=== PATIENT | female | born 1995 | race Caucasian/White ===

== ENCOUNTER 2023-04-23 21:00 | Emergency (ER) | payer MEDICAID, SELFPAY ==
[2023-04-23 21:18] VITALS: BP 121/56; PULSE 78; RESP 20; TEMP 36.8; O2SAT 95; BMI 17.1
--- NOTE | 2023-04-23 21:21 | ED.FEMALEGU1 ---
HPI - Female Genitourinary General Chief complaint: Urogenital-Female Stated complaint: UTI COMPLAINT Time Seen by Provider: 04/23/23 21:21 Discharge Plan Discharge Chief Complaint: Urogenital-Female Referrals: Kvng Arias MD [Primary Care Provider] - 1 week
[2023-04-23 21:31] LABS: Bilirubin Urine NEGATIVE (NEGATIVE); Blood Urine LARGE (NEGATIVE); Clarity Urine CLOUDY (CLEAR); Color Urine LT. YELLOW (YELLOW); Glucose Urine UA NEGATIVE (NEGATIVE); Ketones Urine NEGATIVE (NEGATIVE); Leukocyte Esterase Urine MODERATE (NEGATIVE); Nitrite Urine POSITIVE (NEGATIVE); Protein Urine >=300 mg/dL (NEG/TRACE); Specific Gravity Urine >=1.030 (1.005-1.025); Urobilinogen Urine 0.2 EU/dL (0.2-1.0); pH Urine 5.5 (5.0-9.0)
[2023-04-23 21:32] LABS: Urine Microscopic Indicated YES
[2023-04-23 21:34] LABS: HCG Qualitative Urine* NEGATIVE (NEGATIVE)
[2023-04-23 21:37] LABS: Bacteria Urine MODERATE #/HPF (NONE SEEN); Cast Seen? NONE SEEN #/LPF (NONE SEEN); Crystals Seen? None Seen #/HPF (None Seen); Mucus Urine NONE SEEN (NONE SEEN); Squamous Epithelial Cell Urine FEW #/LPF (NONE/RARE); Urine Culture Indicated YES; WBC Urine >100 #/HPF (NONE SEEN)
--- NOTE | 2023-04-23 21:45 | ED_ITS ---
Documented by User: RONA Tobias 04/23/23 21:51 HPI - Female Genitourinary General Chief complaint: Urogenital-Female Stated complaint: UTI COMPLAINT Time Seen by Provider: 04/23/23 21:21 Source: patient Mode of arrival: walk-in Limitations: no limitations History of Present Illness HPI Narrative: patient is a 27-year-old female presents to the emergency department for a one-day history of burning with urination and some pain to the right low back. She denies fevers, chills, vomiting. She states she had a urinary tract infection about one year ago similarly. She has no history of kidney stones. She has not noted any blood in her urine. She has had a previous hysterectomy, no concern for . No medications taken prior to arrival. Related Data Previous Rx's Medication Instructions Recorded ciprofloxacin HCl 500 mg tablet 500 mg PO BID #14 tabs 04/23/23 (Cipro) ketorolac 10 mg tablet 10 mg PO TID PRN pain #10 tabs 04/23/23 ondansetron 4 mg disintegrating 4 mg PO Q6H PRN nausea and 04/23/23 tablet vomiting #12 tabs phenazopyridine 200 mg tablet 200 mg PO Q8H 2 days #6 tabs 04/23/23 (Pyridium) Allergies Allergy/AdvReac Type Severity Reaction Status Date / Time No Known Drug Allergies Allergy Verified 04/23/23 21:21 Review of Systems ROS Constitutional Denies: fever or chills Ears, nose, mouth, and throat Denies: throat pain Cardiovascular Denies: chest pain Respiratory Denies: shortness of breath or cough Gastrointestinal Denies: abdominal pain, nausea or vomiting Genitourinary Reports: painful urination Musculoskeletal Reports: back pain Integumentary/Breast Denies: rash Neurological Denies: headache Exam Narrative Exam Narrative: Gen.: Awake, alert, in no distress Head: Normocephalic, atraumatic ENT: Moist mucous membranes Respiratory: No respiratory distress, lungs clear bilaterally Cardio: Regular rate and rhythm Gastrointestinal: Abdomen is soft, nondistended and nontender to palpation Back: no CVA tenderness Extremities: Moves extremities equally Psych: Normal mood and affect Neuro: No focal neuro deficit Skin: Warm, dry, intact Constitutional Vital Signs, click to edit/add: Last Vital Signs Temp 98.2 F 04/23/23 21:18 Pulse 78 04/23/23 21:18 Resp 20 04/23/23 21:18 BP 121/56 04/23/23 21:18 Pulse Ox 95 04/23/23 21:18 Course Vital Signs Vital signs: Vital Signs Temperature 98.2 F 04/23/23 21:18 Pulse Rate 78 04/23/23 21:18 Respiratory Rate 20 04/23/23 21:18 Blood Pressure 121/56 04/23/23 21:18 Pulse Oximetry 95 04/23/23 21:18 Temperature 98.2 F 04/23/23 21:18 Pulse Rate 78 04/23/23 21:18 Respiratory Rate 20 04/23/23 21:18 Blood Pressure 121/56 04/23/23 21:18 Pulse Oximetry 95 04/23/23 21:18 MDM - Female Genitourinary MDM Narrative Medical decision making narrative: patient with a nitrite positive urinary tract infection. she has had urinary tract infection in the past with low back pain as well. Her vital signs are stable, she has no CVA tenderness. She'll be treated for urinary tract infection with Cipro, Pyridium, Zofran, Toradol. Work note provided. Follow-up with PCP and return to the emergency department if symptoms change or worsen Medical Records Attestation: I reviewed the patient's medical records. Lab Data Attestation: I reviewed the patient's lab results. Labs: Lab Results 04/23/23 Range/Units 21:20 Urine Color Lt. yellow (YELLOW) Urine Clarity Cloudy A (CLEAR) Urine pH 5.5 (5.0-9.0) Ur Specific [place] >=1.030 A (1.005-1.025) Urine Protein >=300 A (NEG/TRACE) mg/dL Urine Glucose (UA) Negative (NEGATIVE) mg/dL Urine Ketones Negative (NEGATIVE) mg/dL Urine Occult Blood Large A (NEGATIVE) Urine Nitrite Positive A (NEGATIVE) Urine Bilirubin Negative (NEGATIVE) Urine Urobilinogen 0.2 (0.2-1.0) EU/dL Ur Leukocyte Esterase Moderate A (NEGATIVE) Urine RBC 5-10 A (0-2) #/HPF Urine WBC >100 A (NONE SEEN) #/HPF Ur Squamous Epith Cells Few A (NONE/RARE) #/LPF Urine Crystals None seen (None Seen) #/HPF Urine Bacteria Moderate A (NONE SEEN) #/HPF Urine Casts None seen (NONE SEEN) #/LPF Urine Mucus None seen (NONE SEEN) Ur Culture Indicated? Yes Urine HCG, Qual Negative (NEGATIVE) Discharge Plan Discharge Chief Complaint: Urogenital-Female Clinical Impression: Urinary tract infection Patient Disposition: Home, Self-Care Time of Disposition Decision: 21:46 Condition: Good Mode of Transportation: Private Vehicle Prescriptions / Home Meds: New phenazopyridine [Pyridium] 200 mg tablet 200 mg PO Q8H 2 Days Qty: 6 0RF ciprofloxacin HCl [Cipro] 500 mg tablet 500 mg PO BID Qty: 14 0RF ketorolac 10 mg tablet 10 mg PO TID PRN (Reason: pain) Qty: 10 0RF ondansetron 4 mg tablet,disintegrating 4 mg PO Q6H PRN (Reason: nausea and vomiting) Qty: 12 0RF Instructions: Urinary Tract Infection in Women (ED) Stand Alone Forms: Portal Instructions Referrals: Kvng Arias MD [Primary Care Provider] - 1 week Discharge Date/Time: 04/23/23 22:06 Documented by User: Shala Cramer MD 04/24/23 01:21 HPI - Female Genitourinary General Chief complaint: Urogenital-Female Stated complaint: UTI COMPLAINT Time Seen by Provider: 04/23/23 21:21 Related Data Previous Rx's Medication Instructions Recorded ciprofloxacin HCl 500 mg tablet 500 mg PO BID #14 tabs 04/23/23 (Cipro) ketorolac 10 mg tablet 10 mg PO TID PRN pain #10 tabs 04/23/23 ondansetron 4 mg disintegrating 4 mg PO Q6H PRN nausea and 04/23/23 tablet vomiting #12 tabs phenazopyridine 200 mg tablet 200 mg PO Q8H 2 days #6 tabs 04/23/23 (Pyridium) Allergies Allergy/AdvReac Type Severity Reaction Status Date / Time No Known Drug Allergies Allergy Verified 04/23/23 21:21 Exam Constitutional Vital Signs, click to edit/add: Last Vital Signs Temp 98.2 F 04/23/23 21:18 Pulse 78 04/23/23 21:18 Resp 20 04/23/23 21:18 BP 121/56 04/23/23 21:18 Pulse Ox 95 04/23/23 21:18 Course Vital Signs Vital signs: Vital Signs Temperature 98.2 F 04/23/23 21:18 Pulse Rate 78 04/23/23 21:18 Respiratory Rate 20 04/23/23 21:18 Blood Pressure 121/56 04/23/23 21:18 Pulse Oximetry 95 04/23/23 21:18 Temperature 98.2 F 04/23/23 21:18 Pulse Rate 78 04/23/23 21:18 Respiratory Rate 20 04/23/23 21:18 Blood Pressure 121/56 04/23/23 21:18 Pulse Oximetry 95 04/23/23 21:18 MDM - Female Genitourinary MDM Narrative Medical decision making narrative: patient with a nitrite positive urinary tract infection. she has had urinary tract infection in the past with low back pain as well. Her vital signs are stable, she has no CVA tenderness. She'll be treated for urinary tract infection with Cipro, Pyridium, Zofran, Toradol. Work note provided. Follow-up with PCP and return to the emergency department if symptoms change or worsen Attending physician attestation I have reviewed the mid-level documentation, agree with the documentation, medical decision making and treatment plan as outlined by the mid-level provider. Lab Data Labs: Lab Results 04/23/23 Range/Units 21:20 Urine Color Lt. yellow (YELLOW) Urine Clarity Cloudy A (CLEAR) Urine pH 5.5 (5.0-9.0) Ur Specific [place] >=1.030 A (1.005-1.025) Urine Protein >=300 A (NEG/TRACE) mg/dL Urine Glucose (UA) Negative (NEGATIVE) mg/dL Urine Ketones Negative (NEGATIVE) mg/dL Urine Occult Blood Large A (NEGATIVE) Urine Nitrite Positive A (NEGATIVE) Urine Bilirubin Negative (NEGATIVE) Urine Urobilinogen 0.2 (0.2-1.0) EU/dL Ur Leukocyte Esterase Moderate A (NEGATIVE) Urine RBC 5-10 A (0-2) #/HPF Urine WBC >100 A (NONE SEEN) #/HPF Ur Squamous Epith Cells Few A (NONE/RARE) #/LPF Urine Crystals None seen (None Seen) #/HPF Urine Bacteria Moderate A (NONE SEEN) #/HPF Urine Casts None seen (NONE SEEN) #/LPF Urine Mucus None seen (NONE SEEN) Ur Culture Indicated? Yes Urine HCG, Qual Negative (NEGATIVE) Discharge Plan Discharge Chief Complaint: Urogenital-Female Clinical Impression: Urinary tract infection Patient Disposition: Home, Self-Care Time of Disposition Decision: 21:46 Condition: Good Mode of Transportation: Private Vehicle Prescriptions / Home Meds: New phenazopyridine [Pyridium] 200 mg tablet 200 mg PO Q8H 2 Days Qty: 6 0RF ciprofloxacin HCl [Cipro] 500 mg tablet 500 mg PO BID Qty: 14 0RF ketorolac 10 mg tablet 10 mg PO TID PRN (Reason: pain) Qty: 10 0RF ondansetron 4 mg tablet,disintegrating 4 mg PO Q6H PRN (Reason: nausea and vomiting) Qty: 12 0RF Instructions: Urinary Tract Infection in Women (ED) Stand Alone Forms: Portal Instructions Referrals: Kvng Arias MD [Primary Care Provider] - 1 week Discharge Date/Time: 04/23/23 22:06
[2023-04-23] MEDS: CIPROFLOXACIN HCL 500 MG TABLET PO (22:04)
[2023-04-23] MEDS: ONDANSETRON 4 MG RAPDIS TABLET SL (22:04)
[2023-04-23] MEDS: KETOROLAC TROMETHAMINE 10 MG TABLET PO (22:04)
== END 2023-04-23 22:06 | disposition home or self-care (01) ==
PROVIDERS: Physician Assistant; Emergency Provider Emergency Medicine; PCP Family Medicine
DX: N39.0 Urinary tract infection, site not specified (principal); Z87.440 Personal history of urinary (tract) infections
CPT/HCPCS: 81001; 81003; 84703; 87086; 87150; 87186; 99283

== ENCOUNTER 2023-06-07 20:50 | Outpatient (REF) | payer MEDICAID, SELFPAY ==
[2023-06-12 12:09] LABS: Age Gdln ACOG Testing Note (.); IGP, rfx Aptima HPV ASCU Note (.)
== END 2023-06-07 20:51 | disposition home or self-care (01) ==
LOC: LAB 20:50
PROVIDERS: PCP Family Medicine; Visit Provider Physician Assistant
DX: Z12.4 Encounter for screening for malignant neoplasm of cervix (principal)
CPT/HCPCS: G0145

== ENCOUNTER 2024-11-26 15:27 | Outpatient (REF) | payer MEDICAID, SELFPAY ==
[2024-11-30 12:07] LABS: Age Gdln ACOG Testing Note (.); HPV Aptima Negative (Negative); IGP, Aptima HPV, rfx 16/18,45 Note (.)
== END 2024-11-26 15:28 | disposition home or self-care (01) ==
LOC: LAB 15:27
PROVIDERS: PCP Family Medicine; Visit Provider Obstetrics & Gynecology
DX: Z01.419 Encounter for gynecological examination (general) (routine) without abnormal findings (principal)
CPT/HCPCS: 87624; 88175

== ENCOUNTER 2024-12-05 12:33 | Outpatient (OUT) | payer MEDICAID, SELFPAY ==
--- OUTSIDE RECORDS SUMMARY | 2024-12-05 12:50 | XMS_ITS | CCD ---
Author Organization [facility] Care Team Providers Care Textile Engineer Name Role Phone DR KVNG PEPE A Primary Care Unavailable MARKER, DR LOONEY Admitting Unavailable MARKER, DR LOONEY Attending Unavailable MARKER, DR LOONEY Consulting Unavailable LAVELL, DR ELLINGTON Admitting Unavailable LAVELL, DR ELLINGTON Attending Unavailable LAVELL, DR ELLINGTON Consulting Unavailable Marie Gilman DDS Attending Unavailable Kvng Pepe MD Primary Care Provider RAKEL MONTE Attending Unavailable MARCE CISNEROS Attending Unavailable RACHEAL GOMES Referring Unavailable RAKEL MONTE Attending Unavailable Lilliana, Physician Primary Care Provider UnavailDENISE Hansen Attending Unavailable LILLIANA, PHYSICIAN Primary Care Unavailable Allergies Allergy Classification Reported Allergen(s) Allergy Type Date of Onset Reaction(s) Facility (1 source) [facility] Drug allergy (disorder) [facility] Medications Current Medications Medication Drug Class(es) Dates Sig (Normalized) Sig (Original) amoxicillin 500 mg oral capsule (4 sources) Penicillin-class Antibacterial Start: 11-17-2024 take 1 capsule by mouth in the morning, then take 1 capsule by mouth in the evening, then take 1 capsule by mouth at bedtime amoxicillin (Amoxil) 500 MG capsule Take 500 mg by mouth in the morning and 500 mg in the evening and 500 mg before bedtime. 11/17/2024 Active citalopram 20 mg oral tablet (8 sources) Serotonin Reuptake Inhibitor Start: 2024 take 1 tablet by mouth once daily citalopram (CELEXA) 20 MG tablet Take 1 (one) tablet (20 mg total) by mouth daily . 2024 Active hydrOXYzine hydrochloride 10 mg oral tablet (9 sources) Antihistamine Start: 04-12-2023 take 1 tablet by mouth every eight hours as needed hydrOXYzine (ATARAX) 10 MG tablet Take 1 (one) tablet (10 mg total) by mouth every 8 (eight) hours as needed . 04/12/2023 Active ondansetron 4 mg oral tablet (8 sources) Serotonin-3 Receptor Antagonist Start: 09-03-2024 ondansetron (ZOFRAN) 4 MG tablet 09/03/2024 Active sulfamethoxazole 800 mg / trimethoprim 160 mg oral tablet (2 sources) Dihydrofolate Reductase Inhibitor Antibacterial, Sulfonamide Antimicrobial Start: 11-04-2024 End: 11-11-2024 take 1 tablet by mouth once in the morning, then take 1 tablet by mouth once at bedtime sulfamethoxazole -trimethoprim (Bactrim DS) 800-160 MG per tablet Indications: Urinary tract infection with hematuria, site unspecified Take 1 tablet by mouth in the morning and 1 tablet before bedtime. Do all this for 7 days. 14 tablet 11/04/2024 11/11/2024 Active Problems Active Problems Problem Classification Problem Date Documented Da te Episodic/Chronic Abdominal pain (3 sources) Pain in female pelvis; Translations: [Pelvic and perineal pain] 11-04-2024 Episodic Other skin disorders (4 sources) Epidermoid cyst; Translations: [Epidermal cyst] 11-24-2024 Episodic Other skin disorders (2 sources) Trichilemmal cyst; Translations: [Pilar cyst] Onset: 12-01-2024 12-01-2024 Episodic Other skin disorders (1 source) Pilar cyst; Translations: [Pilar cyst] Onset: 12-01-2024 Episodic Residual codes; unclassified (2 sources) Pain; Translations: [Pain, unspecified] 11-24-2024 Episodic Urinary tract infections (2 sources) Urinary tract infectious disease; Translations: [Urinary tract infection, site not specified] 11-04-2024 Episodic Past or Other Problems Problem Classification Problem Date Documented Da te Episodic/Chronic Other screening for suspected conditions (not mental disorders or infectious disease) (4 sources) Encounter for screening for malignant neoplasm of cervix; Translations: [ENC SCREENING MALIG NEOPLASM CERV] Onset: 10-19-2021 Episodic Results Test Name Value Interpretation Reference Range Facility Urinalysis macro (dipstick) panel (U)on 11-04-2024 Bilirubin, UA Negative Negative - 4(70) +++ mg/dL [facility] Blood, UA Positive Negative - 50 Shaggy/mcL [facility] Clarity, UA Clear [facility] Color, UA Yellow [facility] Glucose, UA Negative Negative - 1999(110) ++++ mg/dL [facility] Interpretation and review of laboratory results Abnormal [facility] Ketones, UA Positive Negative - 160(16) ++++ mg/dL [facility] Leukocytes, UA Trace Negative - 500+++ Carrie/mcL [facility] Nitrite, UA Positive Negative - Positive [facility] pH, UA 6 5 - 9 [facility] Protein, UA Negative Negative - 1999(20) ++++ mg/dL [facility] Spec Grav, UA 1.025 1 - 1.03 [facility] Urobilinogen, UA 1.0 0.2 - 12 mg/dL [facility] CBC AUTO DIFFon 07-05-2022 BASO # 0.1 103/ul Normal 0.0-0.1 [facility] Comment on above: Performed By: #### C BC #### [facility] [address] [place] [address] Dr. Maegan Rubio Basophils/100 WBC (Bld) 0.5 % Normal 0.2-2.0 [facility] Comment on above: Performed By: #### C BC #### [facility] [address] [place] [address] Dr. Maegan Rubio EO # 0.2 103/ul Normal 0.0-0.7 [facility] Comment on above: Performed By: #### C BC #### [facility] [address] [place] [address] Dr. Maegan Rubio Eosinophils/100 WBC (Bld) 1.8 % Normal 0.9-7.0 [facility] Comment on above: Performed By: #### C BC #### [facility] [address] [place] [address] Dr. Maegan Rubio Erythrocyte distribution width (RBC) [Ratio] 12.0 % Normal 11.0-15.0 [facility] Comment on above: Performed By: #### C BC #### [facility] [address] [place] [address] Dr. Maegan Rubio Hematocrit (Bld) [Volume fraction] 37.4 % Normal 36.0-48.0 [facility] Comment on above: Performed By: #### C BC #### [facility] [address] [place] [address] Dr. Maegan Rubio Hemoglobin (Bld) [Mass/Vol] 12.3 g/dL Normal 12.0-16.0 [facility] Comment on above: Performed By: #### C BC #### [facility] [address] [place] [address] Dr. Maegan Rubio IG # 0.02 10e3/ul Normal 0.00-0.03 [facility] Comment on above: Performed By: #### C BC #### [facility] [address] [place] [address] Dr. Maegan Rubio IG % 0.2 % Normal 0.0-0.5 [facility] Comment on above: Performed By: #### C BC #### [facility] [address] [place] [address] Dr. Maegan Rubio LYMPH # 4.2 103/ul Critically high 1.2-3.8 [facility] Comment on above: Performed By: #### C BC #### [facility] [address] [place] [address] Dr. Maegan Rubio Lymphocytes/100 WBC (Bld) 39.0 % Normal 20.5-60.0 [facility] Comment on above: Performed By: #### C BC #### [facility] [address] [place] [address] Dr. Maegan Rubio MANUAL DIFF REQ NO Normal [facility] Comment on above: Performed By: #### C BC #### [facility] [address] [place] [address] Dr. Maegan Rubio MCH (RBC) [Entitic mass] 30.1 pg Normal 26.7-34.0 [facility] Comment on above: Performed By: #### C BC #### [facility] [address] [place] [address] Dr. Maegan Rubio MCHC (RBC) [Mass/Vol] 32.9 g/dL Normal 29.9-35.2 [facility] Comment on above: Performed By: #### C BC #### [facility] [address] [place] [address] Dr. Maegan Rubio MCV (RBC) [Entitic vol] 91.4 fL Normal 81.0-99.0 [facility] Comment on above: Performed By: #### C BC #### [facility] [address] [place] [address] Dr. Maegan Rubio MONO # 0.9 103/ul Critically high 0.3-0.8 [facility] Comment on above: Performed By: #### C BC #### [facility] [address] [place] [address] Dr. Maegan Rubio Monocytes/100 WBC (Bld) 8.4 % Normal 1.7-12.0 [facility] Comment on above: Performed By: #### C BC #### [facility] [address] [place] [address] Dr. Maegan Rubio NEUT # 5.4 103/ul Normal 1.4-6.5 [facility] Comment on above: Performed By: #### C BC #### [facility] [address] [place] [address] Dr. Maegan Rubio Neutrophils/100 WBC (Bld) 50.1 % Normal 43.0-75.0 [facility] Comment on above: Performed By: #### C BC #### [facility] [address] [place] [address] Dr. Maegan Rubio Platelet mean volume (Bld) [Entitic vol] 10.0 fL Normal 9.5-13.5 [facility] Comment on above: Performed By: #### C BC #### [facility] [address] [place] [address] Dr. Maegan Rubio PLT 347 103/ul Normal 150-450 [facility] Comment on above: Performed By: #### C BC #### [facility] [address] [place] [address] Dr. Maegan Rubio RBC 4.09 106/ul Critically low 4.20-5.40 [facility] Comment on above: Performed By: #### C BC #### [facility] [address] [address] [address] Maegan Rubio WBC 10.8 103/ul Normal 4.0-11.0 [facility] Comment on above: Performed By: #### C BC #### [facility] [address] [place] [address] Dr. Maegan Rubio ER URINE PROFILEon 2 Bilirubin Ql (U) Negative Normal NEGATIVE [facility] Comment on above: Performed By: #### Erik PRICE UMICRO #### [facility] [address] [place] [address] Dr. Maegan Rubio Clarity (U) CLEAR Normal CLEAR [facility] Comment on above: Performed By: #### Erik PRICE UMICRO #### [facility] [address] [place] [address] Dr. Maegan Rubio Color (U) LT. YELLOW Normal YELLOW [facility] Comment on above: Performed By: #### Erik PRICE UMICRO #### [facility] [address] [place] [address] Dr. Maegan Rubio ERUKory A micrscopic examination will be performed if indicated. Normal [facility] Comment on above: Performed By: #### Erik PRICE UMICRO #### [facility] [address] [place] [address] Dr. Maegan Rubio Glucose Ql (U) Negative Normal NEGATIVE [facility] Comment on above: Performed By: #### Erik PRICE UMICRO #### [facility] [address] [place] [address] Dr. Maegan Rubio Hemoglobin Ql (U) MODERATE Abnormal NEGATIVE [facility] [place] Comment on above: Performed By: #### Erik PRICE UMICRO #### [facility] [address] [place] [address] Dr. Maegan Rubio Ketones Ql (U) Negative Normal NEGATIVE [facility] Comment on above: Performed By: #### Erik PRICE UMICRO #### [facility] [address] [place] [address] Dr. Maegan Rubio LEUKOCYTES MODERATE Abnormal NEGATIVE [facility] Comment on above: Performed By: #### RATNA CUMMINGSRO #### [facility] [address] [place] [address] Dr. Maegan Rubio Nitrite Ql (U) Negative Normal NEGATIVE [facility] Comment on above: Performed By: #### RATNA CUMMINGSRO #### [facility] [address] [place] [address] Dr. Maegan Rubio pH (U) 6.0 [pH] Normal 5-9 [facility] Comment on above: Performed By: #### KENROY CUMMINGS #### [facility] [address] [place] [address] Dr. Maegan Rubio Protein (U) [Mass/Vol] 30 mg/dL Abnormal NEGATIVE/ TRACE [facility] Comment on above: Performed By: #### RATNA CUMMINGSRO #### [facility] [address] [place] [address] Dr. Maegan Rubio SPEC GRAVITY 1.025 Normal 1.005-<=1.025 [facility] Comment on above: Performed By: #### KENROY CUMMINGS #### [facility] [address] [place] [address] Dr. Maegan Rubio UR MICRO IND INDICATED Normal [facility] Comment on above: Performed By: #### KENROY CUMMINGS #### [facility] [address] [place] [address] Dr. Maegan Rubio Urobilinogen Qn (U) 0.2 {Zeenat'U}/dL Normal 0.2 - 1. 0 [facility] Comment on above: Performed By: #### RATNA CUMMINGSRO #### [facility] [address] [place] [address] Dr. Maegan Rubio PROF 14(COMP METB)on 022 Albumin [Mass/Vol] 3.9 g/dL Normal 3.4-5.0 [facility] Comment on above: Performed By: #### C MP #### [facility] [address] [place] [address] Dr. Maegan Rubio Albumin/Globulin [Mass ratio] 1.1 {ratio} Normal [facility] Comment on above: Performed By: #### C MP #### [facility] [address] [place] [address] Dr. Maegan Rubio ALP [Catalytic activity/Vol] 83 U/L Normal 46-116 [facility] Comment on above: Performed By: #### C MP #### [facility] [address] [place] [address] Dr. Maegan Rubio ALT [Catalytic activity/Vol] 17 U/L Normal 14-59 [facility] Comment on above: Performed By: #### C MP #### [facility] [address] [place] [address] Dr. Maegan Rubio Anion gap [Moles/Vol] 12.8 mmol/L Normal [facility] Comment on above: Performed By: #### C MP #### [facility] [address] [place] [address] Dr. Maegan Rubio AST [Catalytic activity/Vol] 14 U/L Critically low 15-37 [facility] Comment on above: Performed By: #### C MP #### [facility] [address] [place] [address] Dr. Maegan Rubio Bilirubin [Mass/Vol] 0.2 mg/dL Normal 0.2-1.0 [facility] Comment on above: Performed By: #### C MP #### [facility] [address] [place] [address] Dr. Maegan Rubio Calcium [Mass/Vol] 9.2 mg/dL Normal 8.5-10.1 [facility] Comment on above: Performed By: #### C MP #### [facility] [address] [place] [address] Dr. Maegan Rubio Chloride [Moles/Vol] 103 mmol/L Normal 98-107 [facility] Comment on above: Performed By: #### C MP #### [facility] [address] [place] [address] Dr. Maegan Rubio CO2 [Moles/Vol] 28.4 mmol/L Normal 21.0-32.0 [facility] Comment on above: Performed By: #### C MP #### [facility] [address] [address] [address] Maegan Rubio Creatinine [Mass/Vol] 0.74 mg/dL Normal 0.55-1.02 [facility] Comment on above: Performed By: #### C MP #### [facility] [address] [address] [address] Maegan Rubio EGFR-AF TUNISIAN >60 Normal >=60 [facility] Comment on above: Performed By: #### C MP #### [facility] [address] [address] [address] Maegan Rubio EGFR-NON AF TUNISIAN >60 Normal >=60 [facility] Comment on above: Performed By: #### C MP #### [facility] [address] [address] [address] Maegan Rubio Globulin (S) [Mass/Vol] 3.6 g/dL Normal [facility] Comment on above: Performed By: #### C MP #### [facility] [address] [address] [address] Maegan Rubio Glucose [Mass/Vol] 81 mg/dL Normal 74-106 [facility] Comment on above: Performed By: #### C MP #### [facility] [address] [address] [address] Maegan Rubio Potassium [Moles/Vol] 3.2 mmol/L Critically low 3.5-5.1 [facility] Comment on above: Performed By: #### C MP #### [facility] [address] [address] [address] Maegan Rubio Protein [Mass/Vol] 7.5 g/dL Normal 6.4-8.2 [facility] Comment on above: Performed By: #### C MP #### [facility] [address] [address] [address] Maegan Rubio Sodium [Moles/Vol] 141 mmol/L Normal 136-145 [facility] Comment on above: Performed By: #### C MP #### [facility] [address] [place] [address] Dr. Maegan Rubio Urea nitrogen [Mass/Vol] 12.0 mg/dL Normal 7.0-18.0 [facility] Comment on above: Performed By: #### C MP #### [facility] [address] [place] [address] Dr. Maegan Rubio Urea nitrogen/Creatinine [Mass ratio] 16.2 mg/mg Normal [facility] Comment on above: Performed By: #### C MP #### [facility] [address] [place] [address] Dr. Maegan Rubio URINE MICROSCOPIC ONLYon BACTERIA SMALL Abnormal NONE SEEN [facility] Comment on above: Performed By: #### Erik PRICE UMICRO #### [facility] [address] [place] [address] Dr. Maegan Rubio Bacteria identified Cx Nom (U) INDICATED Normal [facility] Comment on above: Performed By: #### Erik PRICE UMICRO #### [facility] [address] [place] [address] Dr. Maegan Rubio CAST NONE SEEN Normal NONE SEEN [facility] Comment on above: Performed By: #### Erik PRICE UMICRO #### [facility] [address] [place] [address] Dr. Maegan Rubio Crystals LM Nom (Urine sed) NONE SEEN Normal NONE SEEN [facility] Comment on above: Performed By: #### Erik PRICE UMICRO #### [facility] [address] [place] [address] Dr. Maegan Rubio Epithelial cells LM Ql (Urine sed) NONE SEEN Normal NONE SEEN /RARE [facility] Comment on above: Performed By: #### Erik PRICE UMICRO #### [facility] [address] [place] [address] Dr. Maegan Rubio MUCOUS NONE SEEN Normal NONE SEEN [facility] Comment on above: Performed By: #### Erik PRICE UMICRO #### [facility] [address] [place] [address] Dr. Maegan Rubio RBC 5-10 Abnormal 0-2 [facility] Comment on above: Performed By: #### KENROY CUMMINGS #### [facility] [address] [place] [address] Dr. Maegan Rubio WBC 20-50 Abnormal NONE SEEN [facility] Comment on above: Performed By: #### KENROY CUMMINGS #### [facility] [address] [place] [address] Dr. Maegan Rubio PAP ACOG PANEL 2: 21 to 29on 10-24-2021 . . Normal [facility] Comment on above: Performed By: #### [id number] #### [facility] [address] [place] [address] Dr. Maegan Rubio Age Gdln ACOG Testing - [facility] Comment on above: Performed By: #### [id number] #### [facility] [address] [place] [address] Dr. Maegan Rubio DIAGNOSIS: Comment Normal [facility] Comment on above: Result Comment: NEGA TIVE FOR INTRAEPITHELIAL LESION OR MALIGNANCY. Performed By: #### [id number] #### [facility] [address] [place] [address] Dr. Maegan Rubio Methodology: Comment [facility] Comment on above: Result Comment: This liquid based ThinPrep(R) pap test was screened with the use of an image guided system. Performed By: #### [id number] #### [facility] [address] [place] [address] Dr. Maegan Rubio Note: Comment [facility] Comment on above: Result Comment: The Pap smear is a screening test designed to aid in the detection of premalignant and malignant conditions of the uterine cervix. It is not a diagnostic procedure and should not be used as the sole means of detecting cervical cancer. Both false-positive and false-negative reports do occur. . Performed By: #### [id number] #### [facility] [address] [place] [address] Dr. Maegan Rubio Performed by: Comment Normal [facility] Comment on above: Result Comment: [employer] (ASCP) Performed By: #### [id number] #### [facility] [address] [place] [address] Dr. Maegan Rubio Reflex Criteria: Comment Normal [facility] Comment on above: Result Comment: The HPV DNA reflex criteria were not met with this specimen result therefore, no HPV testing was performed. . Performed By: #### [id number] #### [facility] [address] [place] [address] Dr. Maegan Rubio Specimen adequacy: Comment Normal [facility] Comment on above: Result Comment: Sati sfactory for evaluation. No endocervical component is identified. Performed By: #### [id number] #### [facility] [address] [place] [address] Dr. Maegan Rubio Coding Summaryon 03-24-2021 Coding Summary [employer]Base 64 IijhmbqlYRs2jQy+PGhlY WQ+VL8OVQPzX25xaUVbqO 6HQ8pVJJ3ZXHYBHZMIFC6 BZX9geHZ0QXabV8SlqvKg ZgrsgQJzCB91XOs9PPE9x KcrFQhjxQ3bkJUeQ7k7Ky YbKF45gS99KHphFUFwBiG 3LjZpbjsgbWFy A6uqYjJvxNXxZbo+PHRhY mxlIHdpZHRoPScxMDAlJy UlvGdiYZ8oFw0yFFHqOMM vbGxhcHNlOiBj g2wpEIXsYDnpCW5awDtjV 5OcrFO3LMHti1e5Yo62mG I+UYXzGEE1vGqmTLtcq75 3QrQok3wuROX8 jAEtVPhsELA8I55mw8P3F QElOYJcONU5bKN8sI7vlO macepcX8XjrFHfRxS4YVK 6fHXlsL3hmGio slozsO2gTwg+F55GEI0FM MWIOA1PAmt3L7LdIhoydS I+ZR49YPSrFX03wVWmhXB oc1diuPh4UxNv FMInXTX6iFzzQLlps5XwY RWwV62dlRFwl5X3MKBkhL fdzLEaUxSwlXW1xX3dDMx yoovxx3fmyjwz Szwhu8jeie21qD04L02yM ErnHLEtABS2VDPdIHEsgD pklg1wmY9zVk1+KCwzc4u yx7mglXe5WdLf VSMwofHdrMcaUTB7w3FbY w25I9MowJtuq0GpWcy6lr 46wBCqj0A3kDG3OXvbMOQ wnO0jCDmfMkG1 JPPnVkYkjZ08cQYzALbwX t9smXakpDiwVZ5pKNYxqe fjNDSdjE5lBGAbeMAnoBv xCP9gKOFydbia g920MiOxVTW6IEJqnETiH 3SujX7hGbNrYHMnGVXeE4 AkmHNcZJyrX441WOzxPmI 6PTTgidMvO5Ph SFBuaQhnZnQ6t0J0Fv6Cw 9IzsdjlRYF0NXbkJEY9Il GjDqDhGrU5K5NsZra2LBU cuJaxWB4cK9Xr HSDbmfqsdaoowDD3DEUtZ ROdgY36vDQpBIrtWg5vk2 M4d424UKCjEQYjsM02Cb9 udDogMTBwdCBU bX5frmmsp7jkwcbuTnIjX OGaWFv1SYb6WPYtyBngIj VrSWQ5EaT2ZKM3kCRydM0 wmOyapdzjgM2d Oyc+Z43ozT1yXIM2YXM9j lryBFLlljTaYD08BM41Q2 RyPjwvdGFibGU+PGRpdiB uvAbiDQ6pKyFk n2wdd7PqHGozC5KaOKMsK RedDnz3IJYnCRS9gIA5tN 2cAPGnHWgqs4V8cXI6L6O xprKmny5fy2cq WKFlZPkmY24vuQOks5M0I GGfmZN2FQCpuFdbWnQhhU 93Oyc+ICMotZzru6OhBkk uw3uze4vztJl1 AnKpPNHbxiDfaDptFLQ1u 7JdRo43M27cNIlaDJOzGL WsBUBrDGEnsQgkds9ikB9 wIi8+PGNvbCB3 mOX2hJ2kRKFlUvC0JSjoR 153RiCmjVRtMjhlw3fpx3 chvOm5GrAwLAYmqkEjnOs hTOG1f4JtZs07 D24mYDmgCHJrQXRsVSSfZ DDghEwxhv4zvK0qLx9+PC 5vh4zjio13mI94nBY+PHR iQPM7nPlqBAub VIRzoX2aYEsqYpF6XDZxK eTmlB20zNWoFIwwNy3bbF fjuRcuHZ2wBLLqklqwx80 5MxEpo3piNTYt cODrEElaFFI8T45kf3K5H KQqUGRyGVZ5pLJ7zR5ehY lnbjogbGVmdDsgdmVydGl uKEbcKSayN908 IHRvcDsnPlBhdGllbnQgT lXeVGb8Y3OkYce2LTIilZ hwIJ5dqFNaXZreTp8zbDb zwLnfAH4sDKOd rvgns642StNzg6qiJQDit TSdXEumLMF5W18jq3R0EW XwUIQgYLI5aWX8yS6isZq nbjogbGVmdDsg fgSrvWngGPtsJLdmG380V HRvcDsnPkJpcnRoIERhdG B0GH85NT79xYWda0O9hRY 5M4FdZQWtgzms ljxrsKV1YBIqEILbqL22I u8trOhsEr4mICPcNIF1RM ViaDOdD2SacS0bNdRcQHL zSGRzW3VcfHRz SVimL416IWquOnM5XDQlg fJaL3ZaTLCdgFneOlZ6n0 H6Uz9CS6N5MU16KA93oIP jf5E3vZK2N5Rk QSBeuazeugthgXW9OTUwD XZruC08Ap3njHxeVk9rWD BvMPD3MFPzaDRaR2RdeW2 yOiAjMDAwMDAw G0WniSVgQQafL510OBufD mW8WWYbfhDoU7JgQKOvxN tmSmC1l1V3Fh3VJLc4HL8 9AB18nUUuh6I2 mQU8Q0XhUTMlzgqfcwqui FK2HUNmCPOgjF04Qx0whV mrWa8xMFUtKSY0AFDitSG mV9FppI5mLvOi PGWwTCOiE4OofODdOKsaF 231XIjyAuU5YCXyevYqR0 DxHCMxeBznYjE2a8V9Zo3 VFYDxAC14GXD6 rJJ9IZ27YJ88Z0JhYdcqd GFibGU+PHRhYmxlIHdpZH RoPScxMDAlJyBzdHlsZT0 oDp6rHOEvXSSy hEqstCYyBmBoz1thPSVhM NynGS0gxYrbH5DhxTO7SJ Cfl1j2Nt82T96lU5FhlFS +GFOdiXY6jGP9 pW7xUpRbEoL3PSheE912R rWytXPiWkgyi7qxx8xedD p0UsC1CMGkfcGxqRprDPP 4r7MjOp25G94l IHdpZHRoPSIxNSUiIHZhb Kjzwh8jjX1nCd1+PGNvbC A9gRM4bF7lFhXxAgJ3KPw kG767HfFiaPZb Grdwf6cva3chfAf9BsVzI WBeazRxrNrdUEU9g3JeSv 11R0JoeSvxy1RkPov5yb2 9lVQyi8J8yYY9 T4ZaTUBlizvefKZolEccY F5uWXMvjnulFSYdoV1mUR OnK7v0RjOaZmS1BHvjR1Z arrE6ZDWacHZq UIwxGEA3R56qe8S6YGBvM YBfLEN5jIY1aB8qpOannl ogbGVmdDsgdmVydGljYWw mCEsaE617FFWi nKmqIOXejS7zGJOtaSIvl VwcUJ5dUPFzgxhfNxEAZz tMRSwgQlJJVFRBTlkgTE9 UVGAING82VK83 eJBae4H4uHB7A8EvYUWwn cctpiwwqRM1WFRaEPRpuG 95eXVtUUhbDs7dq3L6q88 6WYSoQDBznT17 Td2uuCopKKAbeYALnA0uq njsx3gpthxbWkIqREGaPM v1LEs6RKZeaBpyHtDmLHC 2XuJ3MRV5jIBs jG5udQgptgmdhG7jPzh+M DHiTjEhSHj0WfaifDI+PH BiHUU0yFinBAwgVPSsoN0 eWUGfA6e0YfEp FwX5HVzqU7GfWORbissvZ r25vN2hXuCwBpV2LXjmG2 IbeaQ8LBTxxWEjDPcvPMK 1R88vm3F1XUVb QBSnCZU3uVH6pB6gwUpjf jogbGVmdDsgdmVydGljYW mnYEoxA848LOXkfAnaNhR 6NNrwWECzAP17 UK01tBThc1I8wNA4V3UoH SRtqcnzvzpfsRU8RTKhHJ FnbE15yNVfVJcrTq8ne4F 3v732YKFzVNSe uD08Yp7dhBbcMFRldTRNh E9zitovq2ecuvcbWiNePP CsPHd9YXs4NLMlpYqfQuD sRNB7ShV8AUP7 cEHmcM3ttKyanxkhoO4yF yc+QdDOWEeUQM97TS92eU Tdw2G7zVT1Z2BvZEZnume bpbdruQX2XUSg AVPqaY78vQDmPCgnRk4fd 1H2v695IWYeSVAgzV77Ux 6wxImpMWXdpVFDtZ1yqko hd0gllrzcUgKf RLXyHYd4XJm6NVStyYmsC iNhLIW9CmY2MWD4uVWncF 8ujDoojbvgtR5mEdg+T1A 5V1YrOrholHN+ TW17MFDqLE27pJElrCKqf 8kxeTi2YwHeHKZvDPP0cE vhPXege8QsUZJbZ30cuTD aj9X4LKOwaOsi vSOzYnFefVT3aC0gFPjsl hqjn9umfegsWlozq2oqzc 79fQ68K03wFNqkOKKpDPL zMCUiIHZhbGln oj3lrW4nMx2+ZMOswWV3j YD6zX2bBgEaZhR1NDdoG3 06RfLvbBTtTiips5oct5i fnVq6UnDtMKAq ieLeqOvmZZM0x7OhLn76Z 29sIHdpZHRoPSIyMCUiIH VicRguww8edD2lNe5+PC9 po2wxik39mM98 dHI+ULRxUCY1xZceRFskV BKxzX9dJRfbRvK0DNLnWi ImwK98uVQbNPrhYd5kaLj vlQakRG2zPNSk iqpos322MqRtj8qrWTTos UWgVGcnALE3P63ns3R6EJ AnHAKgPFE5pWJ8yM4flYc nbjogbGVmdDsg bhFokSxpRAjjEFjqE460X JGtjFpoQuLqvCXjE0gwde IOPT0vTmxreTC+PHRkIHN 0eWxlPSdwYWRk pW8tUQQwJ6a2NcSaMsS9C PquR2ArhrY0RSRkiKRvXW SvnLFAuP4cfkgli0fvlwm gIzAwMDAwMDt0 WPp9OAZviPggDmZmUVW0N dA5BKV5rNAdnI5tqQebwm kgiQ2kWed+RklOOjwvdGQ +GDSxCBJ7wAvs TYxrDNThaO6hBPAcK3k8I fFjMgY2CPpcS8AvdsP8FT RduMWsHXPqeGDXeE2wtaz mn3lbkgdwRmUz NERnDOq7KXu5OMRjbNbeW tFwMKM5EfD1MGK7iEIbaB 8eqPpemsxhcA5oFym+TVJ OOjwvdGQ+PHRk BBQ3cUaiIApcROJhtB9oA ZNvL4k1MbGyImF0TNjzU5 OdryJ6UJRakXPyHOOjyTH NhE0claxgz5zr egbvPvZjTZFfWMu2DAg0O GFmsOufLsEcRTZ1YcQ1FH X2fXSemV6srFdjlsdnuL4 wOyc+DHK4WZS3 RR91ZX76H7BcAkcszSFxu +PHRhYmxlIHdpZHRoPS iuZJRbZzWcxVabVN3tEl9 yZGVyLWNvbGxh cHN (more content not included)... [facility] Coding Summary HTMLBase 64 VxkglsbtGFz8wKy+PGhlY WQ+UF7KPVJrE53ybNNwvA 6OP2zRHW8VONURNBKTMM4 QGK9utWY3RZonR6JxmdOg JqurwAMjCE58VZn7NAC9s NilBIkurZ8hxQPsC8q3Ng CeTI69qS71QLghPECeQdO 3LjZpbjsgbWFy Z9xwNkJkdFNqDqz+PHRhY mxlIHdpZHRoPScxMDAlJy HxuWybTW5iSl9dOMPgRXH vbGxhcHNlOiBj x5gcHFGkZZvfFD4ftKlkL 0LwdYA2BFEuc1r2Za85iE I+OIRqHSQ6oMslJTllo78 9HiByp9tdGLM2 rFPfOHxrUHI6W77fy1U8H UCrFLHoHSN3jSY1zF0ghP mtsmoqR0YvvRLuTnB0IBQ 3lURwvN9lpIuz pstqhJ4jVxx+N25SLK5MP XLTHU0ONzz5A4SuLffnsW I+RU04BPWrJR80dEZcfNY vh1yzgVu4WjQb OOEiWZT1pAkyZOgpo8IjW FPtE53asXZul5S2PCHdeX ybfDWnIvNmbLD6fO0pCPz occlby1vbcstq Byapu9qsgy11fD23N87sT WbrDIHoXBC9AVPeQGEklN edfg6bpN7sBh1+OYobz7c gs8benTi6EuGm GIStvmDqpUlpELE4m5PwE k43O2NhyIilw3DpBhi6fm 67rVCyu2D6tFH5ZMmlSTD vvO2yDHuzFzV0 YGEaPkTctM61qBRhZSxkV f4waDihtLhjDQ8gMCVvqf ctDPXphE8nDQSmhJMqbAx ePO2oKIZxybyj r255TnKsEYF7ZBHpeWDoE 0QmaH5fWuKoSLRyWGQtS3 AsrXOvFRyeJ087CQupKfU 8WIVkzaQdQ0Sn NAHbgTsoMyT3m2U4Hd7So 5VwrzppTCC0YSsoVPF1En DdLxNiTiP1L8QrAwh4ETU weTirFG5kP6Hc RHTibmfwienuiIT4RHWyA RHwyM65kOAxJPacTo3pn2 X3j734IFRmWQYdvF37Ma2 udDogMTBwdCBU wI5uceuis7gfbofnGvTmW TPdOKk9ACy2QUMexDehAf LeQZP0KzS0RHL5qMEpfS7 txSjlaapmxT7w Oyc+A16guF6tMVJ6ZYC7y vtiOLFbaaUqNX11CS58P1 RyPjwvdGFibGU+PGRpdiB nmPjuBO9uZeEg l0wfd9ZdZRiwE1KyISFcO HipBmw2BXNjZUB5lHZ7tS 8kDGXpYWrso0A5vKL8J9H tgjZrgl6ap5am AQIpZCjqR85rpHZjs0W3Z DPiyYI8PTXflGipJoNizL 93Oyc+MCPmgYqxa5DiAwo mf2ihx0jwyBr2 TqGrSQZrreRlnNsnRXI8u 9XwJk00T74bNVvuXEHxGV LaGJNyXTPwqIshvz6guF7 wIi8+PGNvbCB3 gMI9pK5wJWEtByE1QUxhG 549ChDbpBPvYvnog0rgy9 xhnFe4CpWnIILrzdAkbDl vCVG2l0VoWp71 O51yETusJBAjNQFtDLUhP MCsmJrqgv6hqS1bVv1+PC 1ls7tmzb68aO74wCE+PHR uQKS3dTeqMFzj APOpeV8iPJppOlD7RDPqR rDyhB28iPVlTPuxFm6mjQ cclNexKN4gWHEqrbech49 3LqCwe8qnNFXl yPQnHVirLGM2I09dc0Q6T KUjXDNzZVX1bPA0qM9ssM lnbjogbGVmdDsgdmVydGl tPAouPZzjL149 IHRvcDsnPlBhdGllbnQgT uNxDJl1W3FaShe8EEPcsR kxFX1giJWvMPuuEo3ciLu amImiDO2qLPUq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 gauze pads. If soap and water are not available, use hand shake maker. ? Change and remove your gauze as told by your dental care provider. ? Leave stitches (sutures) in place. They may need to stay in place for 2 weeks or longer, or they may dissolve on their own over several weeks. ? If you have bleeding that does not stop, fold a clean piece of gauze and place it on the bleeding gum. Bite down on it gently but firmly. Do not chew on the gauze. ? Do not?do any of the following until your dental care provider says that it is okay: ? Rinse your mouth. ? Chapin or floss near your extraction area. You may brush your other teeth. ? Spit. ? After your dental care provider says that you may rinse your mouth: ? Gargle with a salt-water mixture 3?4 times a day or as needed. To make a salt-water mixture, completely dissolve ??1 tsp of salt in 1 cup of warm water. ? Do not rinse with a lot of force (vigorously). Doing that can break up the blood clot that forms over the extraction site. The blood clot is the beginning of the healing process. ? If you wear dental prostheses, such as dentures, bridges, partials, or orthodontic retainers, talk with your dental care provider about when you may resume wearing them. Eating and drinking ? Do not drink through a straw until your dental care provider says it is okay. ? Eat cool, soft-textured foods as told by your dental care provider. ? Avoid hot drinks and spicy foods until your mouth has healed. Activity ? Do not drive or use heavy machinery for 24 hours if you were given a medicine to help you relax (sedative) during your procedure. ? Do not drive or use heavy machinery while taking prescription pain medicine. ? Return to your normal activities as told by your dental care provider. Ask your dental care provider what activities are safe for you. Managing pain and swelling ? If directed, put ice on your cheek on the affected side of your mouth: ? Put ice in a plastic bag. ? Place a towel between your skin and the bag. ? Leave the ice on for 20 minutes, 2?3 times a day. General instructions ? Take [id number] and prescription medicines only as told by your dental care provider. ? If you are taking prescription pain medicine, take actions to prevent or (more content not included)... [facility] Urgent Care Note- Provideron 07-25-2020 Urgent Care Note- Provider Patient: DANIKA GANDHI Age: 24 years Sex: FEMALE : 1995 Associated Diagnoses: Dental infection; Tooth pain with chewing Author: Jaleel Moreno Basic Information Time seen: Date & time 07/25/2020 19:41:00. History source: Patient. Arrival mode: Walking. History limitation: None. Additional information: OARRS reviewed, appropriate. 2 narcotics in 2019. . 07/21 Left Lower molar wisdom tooth with cavity was extracted at [facility] under local. No anx. Now two white bubbles , increased soreness, feels more swollen past 2 days. No fevers. Also, about 10 days ago Tooth #4 right upper had cavity filled. Since that day every time she bites down sends a sharp, brief, shooting pain. Not constant, not when jaw open. 5/10 pain. Took IBU 800mg 2 hours ago and does help. Has not added in tylenol. ALL: NKDA LMP: About 3 months ago. Takes BCPS to have cycle every 3 months, due in 2 weeks. Review of Systems ENMT symptoms: dental pain. Health Status Allergies: Allergic Reactions (Selected) No Known Medication Allergies. Past Medical/ Family/ Social History Family history: No family history items have been selected or recorded.. Social history: Social & Psychosocial Habits Tobacco 07/25/2020 Smoking tobacco use: Never (less than 100 in l Electronic Cigarette/Vaping 07/25/2020 Electronic Cigarette Use: Never . Physical Examination Vital Signs Vital Signs 07/25/2020 19:36 EST Temperature Oral 37 DegC Peripheral Pulse Rate 76 bpm Respiratory Rate 16 br/min Systolic Blood Pressure 100 mmHg Diastolic Blood Pressure 48 mmHg LOW . General: Alert, no acute distress, Not ill-appearing, Skin: Warm, dry, no rash, normal turgor. Head: Normocephalic, atraumatic. Neck: Supple, trachea midline, full range of motion. Eye: Pupils are equal, round and reactive to light, extraocular movements are intact. Ears, nose, mouth and throat: Mouth: moist, Tooth: # 4, dental caries, Tooth appears intact, no gumline redness. Tongue depressor on area of new filling causes pain (filling appears shifted anteriorly and like it needs to be filed). The tooth itself and its crowns are nontender. Left lower posterior gumline with healing wisdom tooth extraction. There are 2 seperate, firm, raised tiny pustules mid line just behind tooth #18. gumline is erythematous. , no fracture, Throat: Normal. Cardiovascular: Regular rate and rhythm, No murmur. Respiratory: Lungs are clear to auscultation, respirations are non-labored, breath sounds are equal. Gastrointestinal: Soft, Nontender. Musculoskeletal: Normal ROM, normal strength. Neurological: Alert and oriented to person, place, time, and situation, No focal neurological deficit observed, CN II-XII intact. Psychiatric: Cooperative, appropriate mood & affect. Medical Decision Making Differential Diagnosis: Dental pain, dental carries. right upper tooth pain x 10 days only when biting: Appears filling needs revised. Left lower 3rd wisdom tooth extraction site infected, mild. begin amox, peridex, lidocaine viscous, and ibu. Call dentist on 07/26/2020. First dose amox tonight is UC. pharmacies closed. Impression and Plan Diagnosis Dental infection (IND65-UV K04.7, Discharge, Medical) Tooth pain with chewing (PYX84-BX K08.89, Discharge, Medical) Plan Condition: Stable. Disposition: Discharged: Time 07/25/2020 20:10:00, to home. Prescriptions: Launch prescriptions Pharmacy: ibuprofen 800 mg oral tablet (Prescribe): 800 mg = 1 tab(s), PO, TID, for 3 day(s), PRN: for pain, 9 tab(s), 0 Refill(s) Lidocaine Viscous 2% mucous membrane solution (Prescribe): See Instructions, Apply topically to painful tooth via cotton swab up to 4 times per day, PRN: dental pain, 100 mL, 0 Refill(s) Peridex 0.12% mucous membrane liquid (Prescribe): 0.018 gm = 15 mL, PO, BID, for 10 day(s), (swish and spit; do not swallow), 300 mL, 0 Refill(s) amoxicillin 500 mg oral tablet (Prescribe): 500 mg = 1 tab(s), PO, TID, for 10 day(s), 30 tab(s), 0 Refill(s). Patient was given the following educational materials: Acute Pain, Adult, Dental Extraction, Care After. Follow up with: [facility] PEPE , only if needed Diagnosis today is left lower gumline dental infection with early abscess. Right upper Tooth #4 Dental filling pain, improper fitting causing pain with bite. From evaluation you have pain and swelling left lower 3rd molar location, s/p wisdom tooth extraction. This is most likely an infection, we are starting on antibiotics to take as prescribed. Call Dentist, Dr. Karlo Fitzgerald Sunday morning to recheck. -Begin Amoxicillin 500mg 1 every 8 hours for 10 days. -Begin Peridex mouth wash twice daily -Topical Lidocaine viscous on cotton tip and touch to area of pain up to 4 times a day. -Begin ibuprofen 800 mg every 8 hours as needed for dental pain. -Take Tylenol 500 mg 1-2 every 4-6 hours as needed for dental pain, not to exceed 3000mg. You may follo (more content not included)... Normal [facility] [place] 020 Urgent Care Record [facility] ? Urgent Care [address] [place], [place] [address] PATIENT DISCHARGE INSTRUCTIONS Patient Information Name: DANIKA GANDHI Age: 24 Years Date of : 1995 Reason For Visit: UC - Dental Pain; UC - Dental Pain; TOOTH PAIN Arrival Time: 07/25/2020 19:29:43 Primary Care Physician: KVNG PEPE Attending Physician: Jaleel Moreno Comment: Visit Diagnosis: Diagnoses This Visit Dental infection (K04.7) Tooth pain with chewing (K08.89) UC - Dental Pain ([id number]) UC - Dental Pain ([id number]) If you received any narcotics, sedation, or any other medication that causes drowsiness for the next 24 hours, unless otherwise directed: ? Do not drive a car. ? Do not operate machinery such as power tools, lawn mowers, drills, sewing machines, or stoves ? Avoid alcoholic beverages and drugs for allergies, nerves, or sleep ? Do not make important personal or business decisions or sign any legal documents With: Address: When: KVNG PEPE [address] [place] [phone] Business (1) , only if needed Comments: Diagnosis today is left lower gumline dental infection with early abscess. Right upper Tooth #4 Dental filling pain, improper fitting causing pain with bite. From evaluation you have pain and swelling left lower 3rd molar location, s/p wisdom tooth extraction. This is most likely an infection, we are starting on antibiotics to take as prescribed. Call Dentist, Dr. Karlo Fitzgerald Sunday morning to recheck. -Begin Amoxicillin 500mg 1 every 8 hours for 10 days. -Begin Peridex mouth wash twice daily -Topical Lidocaine viscous on cotton tip and touch to area of pain up to 4 times a day. -Begin ibuprofen 800 mg every 8 hours as needed for dental pain. -Take Tylenol 500 mg 1-2 every 4-6 hours as needed for dental pain, not to exceed 3000mg. You may follow up with [facility] dental clinic at . You may follow up with [facility] [phone] ext: [phone]. You may also follow up with [facility] at [phone]. You may call [facility] in [facility] at [phone]. For adult dental emergencies please call [phone]. Return for worsening symptoms or concerns, spiking high fevers, redness going up or down side of face, swollen eyes, or any further questions. Medication Information: The exam and treatment you received today in the [facility] were for an urgent problem and are not intended as complete care. It is important for you to follow up with a doctor, nurse practitioner, or physician?s miner assistant for ongoing care. If your symptoms become worse or you do not improve as expected and you are unable to reach your usual health care provider, you should return to the Emergency Department, we are available 24 hours a day. For those patients who have received Radiology results, the interpretation of your X-ray as given to you by our Urgent Care physician is only a preliminary report. The Radiologist will review your films and if there is a change in the diagnosis you will be notified by phone. Please make sure you have provided a working phone number so we can reach you if necessary. In the event that you had a lab culture while you were a patient in the Urgent Care, you will be notified by phone if there is a need to change your antibiotic. Please make sure you have provided a working phone number so we can reach you if necessary. [facility] has provided you with a complete list of medications post discharge. Please inform your assistant teacher primary/provider of your visit and for further instruction on these medications. Any specific questions regarding your chronic medications and dosages should be discussed with your primary care physician(s) and/or pharmacist. New Medications [facility] [id number] [place], [place] [id number], [phone] amoxicillin (amoxicillin 500 mg oral tablet) 1 tab(s) Oral 3 times a day for 10 Days. Refills: 0. chlorhexidine topical (Peridex 0.12% mucous membrane liquid) 15 Milliliter Oral 2 times a day for 10 Days. (swish and spit; do not swallow). Refills: 0. ibuprofen (ibuprofen 800 mg oral tablet) 1 tab(s) Oral 3 times a day as needed for pain for 3 Days. Refills: 0. lidocaine topical (Lidocaine Viscous 2% mucous membrane solution) Apply topically to painful tooth via cotton swab up to 4 times per day; as needed dental pain. Refills: 0. Medications to Continue That Have Not Changed Other Medications citalopram (CeleXA 40 mg oral tablet) 1 tab(s) Oral every day. ethinyl estradiol-levonorgest rel (ethinyl estradiol-levonorgest rel 20 mcg-100 mcg oral tablet) 1 tab(s) Oral every day. lamoTRIgine (lamoTRIgine 25 mg oral tablet) 1 tab(s) Oral 2 times a day. traZODone (traZODone 100 mg oral tablet) 1 tab(s) Oral once a day (at bedtime) (more content not included)... [facility] Coding Summaryon 06-08-2020 Coding Summary CODING DATE: 06/08/2020 [facility] STATUS: Home PAYOR: Medicaid HMO ADMIT DX: REASON FOR VISIT DX: R10.2 Pelvic and perineal pain FINAL DX: PRINCIPAL: R10.2 Pelvic and perineal pain SECONDARY: PYMT PROC APC STAT DESCRIPTION DOCTOR NAME DATE NOTE: The code number assigned matches the documented diagnosis and / or procedure in the patient's chart. However, the narrative phrase printed from the coding software may appear abbreviated, or result in slightly different terminology. Coded By: Fidelina Espino Date Saved: 06/08/2020 03:51 pm [facility] Provider Orderson 06-07-2020 Provider Orders [id number] [facility] US Pelvis Non-OB Completeon 06-04-2020 US Pelvis Non-OB Complete EXAM: US Pelvis Non-OB Complete, US Transvaginal HISTORY: PELVIC PAIN COMPARISON: None TECHNIQUE: Ultrasound study of the pelvis was performed with transabdominal and transvaginal imaging. FINDINGS: Uterus measures 7.7 x 4.8 x 3.6 cm in longitudinal, transverse and AP dimensions. No obvious solid or cystic uterine masses seen. Central endometrial echo complex measures 0.22 cm which is within normal limits. There is a small rounded area of decreased echogenicity in the cervical canal compatible with nabothian cyst. There is a small amount of fluid in the cervical canal which is nonspecific, measuring 2.1 x 1.3 x 0.4 cm. Right ovary measures 4.0 x 2.6 x 1.1 cm, left ovary measures 4.2 x 3.0 x 1.3 cm without solid or cystic mass identified. There are follicles in both ovaries. IMPRESSION: Ultrasound study of the pelvis demonstrates findings compatible with small nabothian cyst. Nonspecific fluid within the cervical canal as noted. No evidence of uterine or adnexal mass. Final Dictated by: Rosendo Shelton MD Dictated DT/TM: 06/04/20 3:20 Signed (Electronic Signature): Rosendo Shelton MD 06/04/20 4:06 pm Technologist: CHRISTI PINON [facility] US Transvaginalon 06-04-2020 US Transvaginal EXAM: US Pelvis Non-OB Complete, US Transvaginal HISTORY: PELVIC PAIN COMPARISON: None TECHNIQUE: Ultrasound study of the pelvis was performed with transabdominal and transvaginal imaging. FINDINGS: Uterus measures 7.7 x 4.8 x 3.6 cm in longitudinal, transverse and AP dimensions. No obvious solid or cystic uterine masses seen. Central endometrial echo complex measures 0.22 cm which is within normal limits. There is a small rounded area of decreased echogenicity in the cervical canal compatible with nabothian cyst. There is a small amount of fluid in the cervical canal which is nonspecific, measuring 2.1 x 1.3 x 0.4 cm. Right ovary measures 4.0 x 2.6 x 1.1 cm, left ovary measures 4.2 x 3.0 x 1.3 cm without solid or cystic mass identified. There are follicles in both ovaries. IMPRESSION: Ultrasound study of the pelvis demonstrates findings compatible with small nabothian cyst. Nonspecific fluid within the cervical canal as noted. No evidence of uterine or adnexal mass. Final Dictated by: Rosendo Shelton MD Dictated DT/TM: 06/04/20 3:20 Signed (Electronic Signature): Rosendo Shelton MD 06/04/20 4:06 pm Technologist: CHRISTI PINON [facility] Vital Signs Date Time Vital Sign Value Performing Clinician Javy luciano 12-01-2024 10:04-0400 Diastolic blood pressure 72 mm[Hg] Denise Contreras PA-C Work Phone: [facility] 12-01-2024 10:04-0400 Heart rate 96 /min Denise Contreras PA-C Work Phone: [facility] 12-01-2024 10:04-0400 Systolic blood pressure 111 mm[Hg] Denise Contreras PA-C Work Phone: [facility] 11-26-2024 13:56-0500 Body mass index (BMI) [Ratio] 16.81 kg/m2 Rakel Lavell DO Work Phone: [facility] 11-26-2024 13:56-0500 Body weight 45.81 kg Rakel Lavell DO Work Phone: [facility] 11-26-2024 13:56-0500 Diastolic blood pressure 68 mm[Hg] Rakel Lavell DO Work Phone: [facility] 11-26-2024 13:56-0500 Systolic blood pressure 102 mm[Hg] Rakel Lavell DO Work Phone: [facility] 11-04-2024 10:04-0500 Body mass index (BMI) [Ratio] 17.14 kg/m2 Rakel Lavell DO Work Phone: [facility] 11-04-2024 10:04-0500 Body weight 46.72 kg Rakel Lavell DO Work Phone: [facility] 11-04-2024 10:04-0500 Diastolic blood pressure 70 mm[Hg] Rakel Lavell DO Work Phone: [facility] 11-04-2024 10:04-0500 Systolic blood pressure 104 mm[Hg] Rakel Lavell DO Work Phone: [facility] Encounters Encounter Date Encounter Type Care Provider Facility Start: 12-01-2024 End: 12-01-2024 Office outpatient new 30 minutes Denise Contreras PA-C Work Phone: [facility] Comment on above: Pilar cyst (Primary Dx) Start: 12-01-2024 End: 12-01-2024 ambulatory DENISE CONTRERAS [facility] Start: 11-26-2024 End: 11-26-2024 Bamboo flowsheet Rakel Lavell DO Work Phone: [facility] Start: 11-26-2024 End: 11-26-2024 Bamboo flowsheet Rakel Lavell DO Work Phone: [facility] Start: 11-26-2024 End: 11-26-2024 Patient encounter procedure Rakel Lavell DO Work Phone: [facility] Start: 11-26-2024 End: 11-26-2024 Periodic preventive med est patient 18-39 yrs Rakel Lavell DO Work Phone: [facility] Comment on above: Well woman exam with routine gynecological exam; H/O: hysterectomy; Pre-op evaluation; Pelvic pain in female Start: 11-26-2024 End: 11-26-2024 Preprocedural examination done Rakel Lavell DO Work Phone: [facility] Start: 11-26-2024 End: 11-26-2024 ambulatory RAKEL LAVELL Not Available Start: 11-24-2024 End: 11-24-2024 Bamboo flowsheet Marce Cisneros PA Work Phone: [facility] Start: 11-24-2024 End: 11-24-2024 Bamboo flowsheet Marce Cisneros PA Work Phone: [facility] Start: 11-24-2024 End: 11-24-2024 Office outpatient new 30 minutes Marce Cisneros PA Work Phone: [facility] Comment on above: Epidermal inclusion cyst (Primary Dx); Pain Start: 11-24-2024 End: 11-24-2024 ambulatory MARCE CISNEROS Not Available Start: 11-04-2024 End: 11-04-2024 Bamboo flowsheet Rakel Lavell DO Work Phone: [facility] Start: 11-04-2024 End: 11-04-2024 Bamboo flowsheet Rakel Lavell DO Work Phone: [facility] Start: 11-04-2024 End: 11-04-2024 Office outpatient visit 15 minutes Rakel Monte DO Work Phone: [facility] Comment on above: Pelvic pain in femal e; Urinary tract infection with hematuria, site unspecified Start: 11-04-2024 End: 11-04-2024 ambulatory RAKEL MONTE Not Available Start: 10-15-2024 ambulatory Marie Gilman DDS [facility] Start: 07-05-2022 End: 07-05-[address] KVNG PEPE Facility:[facility] Start: 10-19-2021 End: 10-19-[address] RAKEL MONTE Facility:[facility] Procedures Date Procedure Procedure Detail Performing Clinician Start: 11-04-2024 Urnls dip stick/tabl et rgnt non-auto w/o micrscp Rakel Monte DO Work Phone: Start: 06-07-2023 Microscopic observat ion [Identifier] in Cervix by Cyto stain Marce REA Work Phone: H/O: hysterectomy H/O: hysterectomy Rakel Lavell DO Work Phone: Plan of Treatment Date Care Activity Detail Author Start: 06-07-2026 Screening for malign ant neoplasm of cervix [facility] Start: 11-26-2025 History and physical examination, annual for health maintenance Wellness Visit [facility] Start: 12-09-2024 End: 12-09-2024 Patient encounter procedure 12/09/2024 9:00 AM EDT Procedure visit [facility] [address] [place] [address] Denise Contreras PA-C [address] [place] [address] [facility] Start: 11-26-2024 End: 11-26-2024 Patient encounter procedure [facility] Comment on above: Arrived Start: 11-24-2024 End: 11-24-2024 Patient encounter procedure [facility] Comment on above: Arrived Start: 11-04-2024 End: 11-04-2025 US Pelvis US Pelvis w/ TV Imaging Routine Pelvic pain in female Expected: 11/04/2024, Expires: 11/04/2025 [facility] Work Phone: Comment on above: Expected: 11/04/2024 , Expires: 11/04/2025 Start: 11-04-2024 End: 11-04-2024 Patient encounter procedure 11/04/2024 9:40 AM EST Office Visit [facility] [address] [place] [address] Rakel Monte, DO [address] [place], [place] [id number] Arrived [facility] Comment on above: Arrived Start: 05-25-2024 COVID-19 Vaccine () COVID-19 Vaccine () [facility] Start: 05-25-2024 Influenza vaccination Influenza Vacc ine (#1) [facility] Start: 2023 Screening for malign ant neoplasm of cervix [facility] Start: 2014 Screening for malign ant neoplasm of cervix Pap Smear [facility] Start: 2011 Hepatitis C screening Hepatitis C Sc reening [facility] Start: 2008 HIV screening HIV Screening [facility] Start: 2005 Depression screening using PHQ-9 (Patient Health Questionnaire 9) score Depression Screening/Follow-Up (PHQ-2/9) [facility] Start: 1993 Tetanus vaccination Tetanus: Every 1 0yrs [facility] Cytology Cervical or vaginal smear or scraping study Pap Smear Pathology and Cytology Routine Well woman exam with routine gynecological exam Ordered: 11/26/2024 [facility] Comment on above: Ordered: 11/26/2024 Human papilloma viru s DNA [Presence] in Unspecified specimen by Probe with amplification HPV DNA probe, amplified Microbiology Routine Well woman exam with routine gynecological exam Ordered: 11/26/2024 [facility] Work Phone: Comment on above: Ordered: 11/26/2024 Payers Date Payer Category Payer [facility] DICAID [facility] [id number] 2022 Medicaid [id number] 2022 Medicaid [id number] 1993 Unknown [id number] 1993 Unknown [id number] 1993 Unknown [id number] 1993 Unknown [id number] 1259 1993 Unknown [id number] [id number] 1993 Unknown [id number] 1959 Unknown [id number] Social History Date Type Detail Facility [facility] consumption [facility] Start: 1993 Sex assigned at Not on file [facility] Start: 11-24-2024 Gender identity Not on file [facility] Start: 11-24-2024 Tobacco smoking stat [facility] Never smoked tobacco [facility] Start: 11-24-2024 Tobacco use and exposure Smoke less tobacco non-user [facility] Start: 11-24-2024 History of Social function [facility] Start: 03-21-2024 Gender identity Identifies as female gender (finding) [facility] Start: 03-21-2024 Sexual orientation Choose not to dis close [facility] Clinical Notes 07-25-2020 to 12-01-2024 Denise Contreras PA-C - 12/01/2024 10:16 AM LOVEirariki Chavez - 11/26/2024 1:50 PM RONA Sandoval - 11/24/2024 9:10 AM Cheikh Cole LPN - 11/04/2024 9:40 AM EST Note Date & Type Note Facility 12-01-2024 Note Danika Gandhi female 29 y.o. Chief Complaint Mass Brief Review of HPI, Focused Exam, and Assessment and Plan Danika Gandhi is a 29-year-old female, referred by Marce Cisneros PA-C, for a several year history of a scalp cyst at the vertex. It has gradually gotten larger. It is intermittently tender. It has not ruptured or become infected. She does not recall a family history of such cysts. She takes no blood thinners. On exam, at the scalp vertex is a 1.5 cm mobile subcutaneous cyst. There are no overlying skin changes, and there is hair growth overlying. PLAN Pilar cyst. We will schedule for excision in the office. I discussed the procedure along with postoperative care. She wishes to proceed and schedule. Allergies: Patient has no known allergies. Review of Systems Constitutional: Negative for chills and fever. HENT: Negative for nosebleeds, rhinorrhea, sinus pressure and sneezing. Eyes: Negative for pain, redness and itching. Respiratory: Negative for cough, choking and shortness of breath. Cardiovascular: Negative for chest pain and palpitations. Gastrointestinal: Negative for nausea and vomiting. Endocrine: Negative for polydipsia and polyuria. Neurological: Negative for dizziness, seizures, syncope, facial asymmetry, weakness and headaches. Physical Exam Data Unavailable EXAM Vitals: 12/01/24 1004 BP: 111/72 Patient Position: Sitting Pulse: 96 General: Normal Mood and affect, pleaseant demanor HEENT: Pupils Equal Round Reactive to Light; Extraocular Movements intact Chest: Normal Rise and Fall, Normal Gait and stride, with normal arm and shoulder motion. Denise Contreras PA-C AUTHENTICATED BY DENISE CONTRERAS, ON 12/01/2024 11:41:15 [facility] 12-01-2024 History of Present illness Narrative Danika Gandhi female 29 y.o. Chief Complaint Mass Brief Review of HPI, Focused Exam, and Assessment and Plan Danika Gandhi is a 29-year-old female, referred by Marce Cisneros PA-C, for a several year history of a scalp cyst at the vertex. It has gradually gotten larger. It is intermittently tender. It has not ruptured or become infected. She does not recall a family history of such cysts. She takes no blood thinners. On exam, at the scalp vertex is a 1.5 cm mobile subcutaneous cyst. There are no overlying skin changes, and there is hair growth overlying. PLAN Pilar cyst. We will schedule for excision in the office. I discussed the procedure along with postoperative care. She wishes to proceed and schedule. Allergies: Patient has no known allergies. Review of Systems Constitutional: Negative for chills and fever. HENT: Negative for nosebleeds, rhinorrhea, sinus pressure and sneezing. Eyes: Negative for pain, redness and itching. Respiratory: Negative for cough, choking and shortness of breath. Cardiovascular: Negative for chest pain and palpitations. Gastrointestinal: Negative for nausea and vomiting. Endocrine: Negative for polydipsia and polyuria. Neurological: Negative for dizziness, seizures, syncope, facial asymmetry, weakness and headaches. Physical Exam Data Unavailable EXAM Vitals: 12/01/24 1004 BP: 111/72 Patient Position: Sitting Pulse: 96 General: Normal Mood and affect, pleaseant demanor HEENT: Pupils Equal Round Reactive to Light; Extraocular Movements intact Chest: Normal Rise and Fall, Normal Gait and stride, with normal arm and shoulder motion. Denise Contreras PA-C documented in this encounter [facility] 11-26-2024 History of Present illness Narrative Reason for Appointment: Patient ID: Danika Gandhi is a 29 y.o. female who presents for Pre-op Visit and Gynecologic Exam (Pt present today for a Pre operative visit and an annual.) Patient presents today for Pre Op/Annual appointment. Patient is scheduled to undergo Diagnostic Laparoscopy, possible PAZ, possible FOE, possible BSO on 12/19/[address] Monte at [facility]. MEDICATIONS Current Outpatient Medications Medication Instructions amoxicillin (AMOXIL) 500 mg, 3 times daily citalopram (CELEXA) 20 mg, Daily hydrOXYzine HCl (ATARAX) 10 mg, Every 8 hours PRN ondansetron (Zofran) 4 MG tablet ALLERGIES No Known Allergies PROBLEMS Active Ambulatory Problems Diagnosis Date Noted No Active Ambulatory Problems Resolved Ambulatory Problems Diagnosis Date Noted No Resolved Ambulatory Problems Past Medical History: Diagnosis Date Anxiety Endometriosis HISTORY PAST MEDICAL HISTORY SOCIAL HISTORY Past Medical History: Diagnosis Date Anxiety Endometriosis Social History Tobacco Use Smoking status: Never Smokeless tobacco: Never Substance Use Topics Alcohol use: Not on file Drug use: Not on file FAMILY HISTORY No family history on file. SURGICAL HISTORY Past Surgical History: Procedure Laterality Date HYSTERECTOMY REVIEW OF SYSTEMS Review of Systems: Review of Systems Constitutional: Negative. HENT: Negative. Eyes: Negative. Respiratory: Negative. Cardiovascular: Negative. Gastrointestinal: Negative. Genitourinary: Positive for pelvic pain. Musculoskeletal: Negative. Skin: Negative. Neurological: Negative. All other systems reviewed and are negative. Hematological: Negative. Endocrine: Negative. Allergic/Immunologic: Negative. OBJECTIVE Objective: Physical Exam Constitutional: Appearance: Normal appearance. She is well-developed. Genitourinary: Vulva normal. Vaginal cuff intact. Cervix is absent. Uterus is absent. Cardiovascular: Rate and Rhythm: Normal rate and regular rhythm. Abdominal: General: Bowel sounds are normal. There is no distension. Palpations: Abdomen is soft. Tenderness: There is no abdominal tenderness. There is no guarding or rebound. Musculoskeletal: General: No swelling. Normal range of motion. Right lower leg: No edema. Left lower leg: No edema. Neurological: Mental Status: She is alert and oriented to person, place, and time. Skin: General: Skin is warm and dry. Psychiatric: Mood and Affect: Mood normal. Behavior: Behavior normal. Vitals and nursing note reviewed. Exam conducted with a senior painter present. Vitals: Estimated body mass index is 16.81 kg/m as calculated from the following: Height as of 06/07/23: 5' 5 . Weight as of this encounter: 101 lb. BP: 102/68 No LMP recorded. Patient has had a hysterectomy. ASSESSMENT & PLAN ICD-10-CM 1. Well woman exam with routine gynecological exam Z01.419 HPV DNA probe, amplified Pap Smear CANCELED: Pap Smear CANCELED: HPV DNA probe, amplified 2. H/O: hysterectomy Z90.710 3. Pre-op evaluation Z01.818 4. Pelvic pain in female R10.2 Annual: Patient presents today for an annual exam. Patient states she is doing well and has no complaints. Pap was obtained without difficulty. Pre Op: Patient is doing well but has complaints of pelvic pain. I have discussed conservative management vs. surgical management with the patient in detail and patient desires surgical management at this time. Patient will undergo oDiagnostic Laparoscopy, possible PAZ, possible FOE, possible BSOn 12/19/24. Surgical consents were signed, mmc was reviewed, and patient is to proceed to [facility] OR. Follow Up: Patient is to follow up between 1-2 weeks post operative to assess proper healing and recovery from procedure. Documented by Corina Chavez on behalf of: Rakel Monte DO documented in this encounter [facility] 11-24-2024 History of Present illness Narrative Images from the original note were not included. Lesions: Location: scalp Duration: years Quality: painful Modifying factors: aggravated by brushing Associated symptoms: changes in size Treatments: none New patient, referred by MALCOLM Burgess All pertinent medical history, medications, and allergies were reviewed. General Exam: alert, oriented to person, place, and time, normal affect, well appearing Unaccompanied A focused exam completed based on patient reported problems, see below: 1. Epidermal inclusion cyst Mid Parietal Scalp 1.4 x 1.0 cm subcutaneous, mobile nodule WITHOUT central punctum. Patient was counseled regarding cysts. Although benign, cysts often slowly enlarge and can occasionally become inflamed. Discussed the only way to definitively diagnose the lesion would be to have it removed and tested. Discussed treatment options including observation vs. excision. Patient elected for excision. Discussed that our cyst schedule is currently booking out into the mid summer. Will refer to plastics. Will start with Dr. Ramirez in [place] and if he does not take her insurance then could look into Dr. Macdonald or even general surgeon Dr. Galdamez will sometimes do surgeries on the scalp. Related Procedures Ambulatory referral to Plastic Surgery 2. Pain Next Visit: prn for any new/changing lesions documented in this encounter [facility] 11-04-2024 History of Present illness Narrative Reason for Appointment: Patient ID: Danika Gandhi is a 29 y.o. female who presents for Pelvic Pain Patient presents today for Acute Visit. MEDICATIONS Current Outpatient Medications Medication Instructions citalopram (CELEXA) 20 mg, Daily hydrOXYzine HCl (ATARAX) 10 mg, Oral, Every 8 hours PRN ondansetron (Zofran) 4 MG tablet ALLERGIES No Known Allergies PROBLEMS Active Ambulatory Problems Diagnosis Date Noted No Active Ambulatory Problems Resolved Ambulatory Problems Diagnosis Date Noted No Resolved Ambulatory Problems Past Medical History: Diagnosis Date Anxiety Endometriosis HISTORY PAST MEDICAL HISTORY SOCIAL HISTORY Past Medical History: Diagnosis Date Anxiety Endometriosis Social History Tobacco Use Smoking status: Not on file Smokeless tobacco: Not on file Substance Use Topics Alcohol use: Not on file Drug use: Not on file FAMILY HISTORY No family history on file. SURGICAL HISTORY Past Surgical History: Procedure Laterality Date HYSTERECTOMY REVIEW OF SYSTEMS Review of Systems: Review of Systems Constitutional: Negative. HENT: Negative. Eyes: Negative. Respiratory: Negative. Cardiovascular: Negative. Gastrointestinal: Negative. Genitourinary: Negative. Musculoskeletal: Negative. Skin: Negative. Neurological: Negative. All other systems reviewed and are negative. Hematological: Negative. Endocrine: Negative. Allergic/Immunologic: Negative. OBJECTIVE Objective: Physical Exam Constitutional: Appearance: Normal appearance. She is well-developed. Cardiovascular: Rate and Rhythm: Normal rate and regular rhythm. Pulmonary: Effort: Pulmonary effort is normal. Breath sounds: Normal breath sounds. Abdominal: General: Bowel sounds are normal. There is no distension. Palpations: Abdomen is soft. Tenderness: There is no abdominal tenderness. There is no guarding or rebound. Musculoskeletal: General: No swelling. Normal range of motion. Right lower leg: No edema. Left lower leg: No edema. Neurological: Mental Status: She is alert and oriented to person, place, and time. Skin: General: Skin is warm and dry. Psychiatric: Mood and Affect: Mood normal. Behavior: Behavior normal. Vitals and nursing note reviewed. Exam conducted with a senior painter present. Vitals: Estimated body mass index is 17.14 kg/m as calculated from the following: Height as of 06/07/23: 5' 5 . Weight as of this encounter: 103 lb. BP: 104/70 No LMP recorded. ASSESSMENT & PLAN ICD-10-CM 1. Pelvic pain in female R10.2 POCT urinalysis dipstick manually resulted US Pelvis w/ TV Pt presents with pelvic pain and positive for UTI. Pt has complaints of dyspareunia. Pt had hysterectomy. Pt given ultrasound to have obtained. Discussed dx lap with pt. Pt to be scheduled for dx lap poss paz jacques hinton, pt refuses cultures. Rx for bactrim faxed to pharmacy. Pt to return for preop/annual. Documented by Mable Cole LPN on behalf of: Rakel Monte DO documented in this encounter [facility] 03-18-2021 Note Education [employer] Orthopedics Muscle Strain A muscle strain is an injury that happens when a muscle is stretched longer than normal. This can happen during a fall, sports, or lifting. This can tear some muscle fibers. Usually, recovery from muscle strain takes 1?2 weeks. Complete healing normally takes 5?6 weeks. This condition is first treated with LUU therapy. This involves: ? Protecting your muscle from being injured again. ? Resting your injured muscle. ? Icing your injured muscle. ? Applying pressure (compression) to your injured muscle. This may be done with a splint or elastic bandage. ? Raising (elevating) your injured muscle. Your doctor may also recommend medicine for pain. Follow these instructions at home: If you have a splint: ? Wear the splint as told by your doctor. Take it off only as told by your doctor. ? Loosen the splint if your fingers or toes tingle, get numb, or turn cold and blue. ? Keep the splint clean. ? If the splint is not waterproof: ? Do not let it get wet. ? Cover it with a watertight covering when you take a bath or a shower. Managing pain, stiffness, and swelling ? If directed, put ice on your injured area. ? If you have a removable splint, take it off as told by your doctor. ? Put ice in a plastic bag. ? Place a towel between your skin and the bag. ? Leave the ice on for 20 minutes, 2?3 times a day. ? Move your fingers or toes often. This helps to avoid stiffness and lessen swelling. ? Raise your injured area above the level of your heart while you are sitting or lying down. ? Wear an elastic bandage as told by your doctor. Make sure it is not too tight. General instructions ? Take zaep-qlg-xdlisbv and prescription medicines only as told by your doctor. ? Limit your activity. Rest your injured muscle as told by your doctor. Your doctor may say that gentle movements are okay. ? If physical therapy was prescribed, do exercises as told by your doctor. ? Do not put pressure on any part of the splint until it is fully hardened. This may take many hours. ? Do not use any products that contain nicotine or tobacco, such as cigarettes and e-cigarettes. These can delay bone healing. If you need help quitting, ask your doctor. ? Warm up before you exercise. This helps to prevent more muscle strains. ? Ask your doctor when it is safe to drive if you have a splint. ? Keep all follow-up visits as told by your doctor. This is important. Contact a doctor if: ? You have more pain or swelling in your injured area. Get help right away if: ? You have any of these problems in your injured area: ? You have numbness. ? You have tingling. ? You lose a lot of strength. Summary ? A muscle strain is an injury that happens when a muscle is stretched longer than normal. ? This condition is first treated with LUU therapy. This includes protecting, resting, icing, adding pressure, and raising your injury. ? Limit your activity. Rest your injured muscle as told by your doctor. Your doctor may say that gentle movements are okay. ? Warm up before you exercise. This helps to prevent more muscle strains. This information is not intended to replace advice given to you by your health care provider. Make sure you discuss any questions you have with your health care provider. Document Revised: 11/06/2019 Document Reviewed: 10/17/2017 Elsevier Patient Education ? 2020 [employer] Contusion A contusion is a deep bruise. This is a result of an injury that causes bleeding under the skin. Symptoms of bruising include pain, swelling, and discolored skin. The skin may turn blue, purple, or yellow. Follow these instructions at home: Managing pain, stiffness, and swelling You may use RICE. This stands for: ? Resting. ? Icing. ? Compression, or putting pressure. ? Elevating, or raising the injured area. To follow this method, do these actions: ? Rest the injured area. ? If told, put ice on the injured area. ? Put ice in a plastic bag. ? Place a towel between your skin and the bag. ? Leave the ice on for 20 minutes, 2?3 times per day. ? If told, put light pressure (compression) on the injured area using an elastic bandage. Make sure the bandage is not too tight. If the area tingles or becomes numb, remove it and put it back on as told by your doctor. ? If possible, raise (elevate) the injured area above the level of your heart while you are sitting or lying down. General instructions ? Take mbfk-yej-kwfzyrw and prescription medicines only as told by your doctor. ? Keep all follow-up visits as told by your doctor. This is important. Contact a doctor if: ? Your symptoms do not get better after several days of treatment. ? Your symptoms get worse. ? You have trouble moving the injured area. Get help right away if: ? You have very bad pain. ? You have a loss of feeling (numbness) in a hand or (more content not included)... [facility] 07-25-2020 Note Patient Education Ma terials Follows: Dental Extraction, Care After This sheet gives you information about how to care for yourself after your procedure. Your dental care provider may also give you more specific instructions. If you have problems or questions, contact your dental care provider. What can I expect after the procedure? After the procedure, it is common to have: ? Mild bleeding from the socket where the tooth was removed. ? Pain and swelling for a few days. ? Numbness for a few hours, if you received numbing medicine (local anesthetic). ? Bruising on the jaw or cheeks. Follow these instructions at home: Mouth care ? Follow instructions from your dental care provider about how to take care of the surgical (extraction) area. Make sure you: ? Wash your hands with soap and water before you touch your mouth or your gauze pads. If soap and water are not available, use hand shake maker. ? Change and remove your gauze as told by your dental care provider. ? Leave stitches (sutures) in place. They may need to stay in place for 2 weeks or longer, or they may dissolve on their own over several weeks. ? If you have bleeding that does not stop, fold a clean piece of gauze and place it on the bleeding gum. Bite down on it gently but firmly. Do not chew on the gauze. ? Do not?do any of the following until your dental care provider says that it is okay: ? Rinse your mouth. ? Chapin or floss near your extraction area. You may brush your other teeth. ? Spit. ? After your dental care provider says that you may rinse your mouth: ? Gargle with a salt-water mixture 3?4 times a day or as needed. To make a salt-water mixture, completely dissolve ??1 tsp of salt in 1 cup of warm water. ? Do not rinse with a lot of force (vigorously). Doing that can break up the blood clot that forms over the extraction site. The blood clot is the beginning of the healing process. ? If you wear dental prostheses, such as dentures, bridges, partials, or orthodontic retainers, talk with your dental care provider about when you may resume wearing them. Eating and drinking ? Do not drink through a straw until your dental care provider says it is okay. ? Eat cool, soft-textured foods as told by your dental care provider. ? Avoid hot drinks and spicy foods until your mouth has healed. Activity ? Do not drive or use heavy machinery for 24 hours if you were given a medicine to help you relax (sedative) during your procedure. ? Do not drive or use heavy machinery while taking prescription pain medicine. ? Return to your normal activities as told by your dental care provider. Ask your dental care provider what activities are safe for you. Managing pain and swelling ? If directed, put ice on your cheek on the affected side of your mouth: ? Put ice in a plastic bag. ? Place a towel between your skin and the bag. ? Leave the ice on for 20 minutes, 2?3 times a day. General instructions ? Take dosl-tiq-fbtodwx and prescription medicines only as told by your dental care provider. ? If you are taking prescription pain medicine, take actions to prevent or treat constipation. Your health care provider may recommend that you: ? Drink enough fluid to keep your urine pale yellow. ? Limit foods that are high in fat and processed sugars, such as fried and sweet foods. ? Take an alul-glx-yibyccg or prescription medicine for constipation. ? If you were prescribed an antibiotic medicine, take it as told by your dental care provider. Do not stop taking the antibiotic even if you start to feel better. ? Do not use any products that contain nicotine or tobacco, such as cigarettes and e-cigarettes. If you need help quitting, ask your health care provider. ? Keep all follow-up visits as told by your dental care provider. This is important. Contact a health care provider if: ? You have pain that does not get better after you take your prescribed medicine. ? You have any of the following: ? A fever. ? Nausea. ? Vomiting. ? Chills. ? You have any of these in the surgical area: ? A lot of redness on your face. ? A lot of swelling in your mouth or on your face. ? A small amount of clear fluid or pus coming from the socket. ? New bleeding coming from the socket. ? Your symptoms get worse. ? You develop new symptoms. ? You have tingling or numbness in your lip or jaw that does not go away. Get help right away if: ? You have bleeding that is severe or does not stop after you bite down on several gauze pads. ? You have severe pain that does not get better with medicine. ? You have swelling that gets worse instead of better. ? You have a lot of clear fluid or pus coming from the surgical area. ? You have difficulty swallowing. ? You cannot open your mouth. ? You have shortness of breath. ? You have chest pain. Summary ? If you have bleeding that does not stop, fold a clean piece of gauze and place it on t (more content not included)... [facility] Evaluation note Diagnosis Pelvic pain in female Unspecified symptom associated with female genital organs Urinary tract infection with hematuria, site unspecified [facility] Diagnosis Epidermal inclusion cyst- Primary Sebaceous cyst Pain Generalized pain [facility] Diagnosis Well woman exam with routine gynecological exam Routine gynecological examination H/O: hysterectomy Acquired absence of both cervix and uterus Pre-op evaluation Pelvic pain in female Unspecified symptom associated with female genital organs [facility] Diagnosis Pilar cyst- Primary documented in this encounter [facility] Summary Purpose Family History No Family History Records FoundNo Family History Records FoundNo Family History Records FoundNo Family History Records FoundNo Family History Records Found Advance Directives No Advanced Directives Records FoundNo Advanced Directives Records FoundNo Advanced Directives Records FoundNo Advanced Directives Records FoundNo Advanced Directives Records Found Additional Source Comments INFORMATION SOURCE (unrecogn ized section and content) DATE CREATED AUTHOR 03/26/2021 [facility] DATE CREATED AUTHOR AUTHOR'S ORGANIZ ATION 07/05/2022 [facility] DATE CREATED AUTHOR AUTHOR'S ORGANIZ ATION 10/17/2024 [facility] DATE CREATED AUTHOR AUTHOR'S ORGANIZ ATION 11/28/2024 [facility] EPIC DATE CREATED AUTHOR AUTHOR'S ORGANIZ ATION 12/02/2024 [facility] Care Teams (unrecognized sec tion and content) Textile Engineer Relationship Specialty Start Date End Date Kvng Pepe MD [address] [place] [id number] PCP - General Family Medicine 06/07/23 Textile Engineer Relationship Specialty Start Date End Date Kvng Pepe MD [address] [place] [phone] PCP - General Family Medicine 06/07/23 Textile Engineer Relationship Specialty Start Date End Date Kvng Pepe MD [address] [place] [id number] PCP - General Family Medicine 06/07/23 Textile Engineer Relationship Specialty Start Date End Date Kvng Pepe MD [address] [place] [id number] PCP - General Family Medicine 06/07/23 Textile Engineer Relationship Specialty Start Date End Date Kvng Pepe MD [address] [place] [phone] PCP - General Family Medicine 06/07/23 Textile Engineer Relationship Specialty Start Date End Date No, Physician [facility] PCP - General 03/21/24 Reason for Visit (unrecogniz ed section and content) Reason Comments Pelvic Pain Reason Comments Suspicious Skin Lesion Specialty Diagnoses / Procedures Referred By Contmarquez t Referred To Contact Dermatology Diagnoses scalp cyst Procedures office visit Racheal Gomes MD [address] [place] [address] Phone: tel: fax: Marce Cisneros PA [address] [place] [address] Phone: tel: fax: Referral ID Status Reason Start Date Expiration Date Visits Re quested Visits Authorized [id number] Closed 09/09/2024 03/08/2025 1 1 Reason Comments Pre-op Visit Gynecologic Exam Pt present today for a Pre operative visit and an annual. Reason Comments Mass Left scalp mass x ma ny years. Painful. Wax/wanes with size and pain. FOR RECORDS PERTAINING TO PATIENTS WHO ARE OR HAVE BEEN ENROLLED IN A CHEMICAL DEPENDENCY/SUBSTANCEABUSE PROGRAM, SOME INFORMATION MAY BE OMITTED. This clinical summary was aggregated from multiple sources. Caution should be exercised in using it in the provision of clinical care. This summary normalizes information from multiple sources, and as a consequence, information in this document may materially change the coding, format and clinical context of patient data. In addition, data may be omitted in some cases. CLINICAL DECISIONS SHOULD BE BASED ON THE PRIMARY CLINICAL RECORDS. [facility] provides no warranty or guarantee of the accuracy or completeness of information in this document.
== END 2024-12-05 12:34 | disposition home or self-care (01) ==
PROVIDERS: Visit Provider Obstetrics & Gynecology
DX: Z01.818 Encounter for other preprocedural examination (principal); R10.2 Pelvic and perineal pain; Z90.710 Acquired absence of both cervix and uterus

== ENCOUNTER 2024-12-19 10:15 | Day surgery (SDC) | payer MEDICAID, SELFPAY ==
[2024-12-05 12:59] VITALS: BP 108/74; PULSE 72; TEMP 36.6; O2SAT 100; BMI 16.8
[2024-12-19] VITALS (9 sets, daily range): BP systolic 95–114; BP diastolic 56–80; PULSE 53–85; TEMP 36.3–36.6; O2SAT 98–100; BMI 16.8
[2024-12-19 10:24] LABS: Basophils Absolute Auto 0.1 10^3/uL (0.0-0.1); Basophils Percent Auto 0.6 % (0.2-2.0); Eosinophils Absolute Auto 0.1 10^3/uL (0.0-0.7); Eosinophils Percent Auto 1.5 % (0.9-7.0); Hematocrit 39.1 % (36.0-48.0); Hemoglobin 13.8 g/dL (12.0-16.0); Immature Granulocytes Abs Auto 0.01 10^3/uL (0.00-0.03); Immature Granulocytes Pct Auto 0.1 % (0.0-0.5); Lymphocytes Absolute Auto 3.6 10^3/uL (1.2-3.8); Lymphocytes Percent Auto 44.9 % (20.5-60.0); Mean Corpuscular HGB Conc 35.3 g/dL (29.9-35.2); Mean Corpuscular Hemoglobin 30.6 pg (26.7-34.0); Mean Corpuscular Volume 86.7 fL (81.0-99.0); Mean Platelet Volume 10.5 fL (9.5-13.5); Monocytes Absolute Auto 0.8 10^3/uL (0.3-0.8); Monocytes Percent Auto 9.7 % (1.7-12.0); Neutrophils Absolute Auto 3.4 10^3/uL (1.4-6.5); Neutrophils Percent Auto 43.2 % (43.0-75.0); Platelet Count 277 10^3/uL (150-450); Red Blood Count 4.51 10^6/uL (4.20-5.40); Red Cell Distribution Width 12.3 % (11.0-15.0)
[2024-12-19] MEDS: LACTATED RINGER'S SOLUTION 1,000 ML 50 ML IV (11:12)
--- NOTE | 2024-12-19 11:27 | P.ON_ITS ---
Brief Operative Note Date of procedure: 12/19/24 Pre-op diagnosis general: pelvic pain, dysmenorrhea, dyspareunia Post-op diagnosis: same as pre-op Procedure: NAME OF PROCEDURE: [diagnostic laparoscopy ] PROCEDURE: The patient was taken back to the Operating Room where she was placed in dorsal lithotomy position after given general anesthesia. The patient was prepped and draped in normal sterile fashion. A sponge stick was placed into the patient's vagina. Attention was turned to the patient's abdomen, where a small umbilical incision was made. The fascia was tented using Teodora clamps and the fascia was entered sharply. Confirmation of intraabdominal placement of the 10 mm port was confirmed under direct visualization using a laparoscope. The patient's abdomen was then insufflated using CO2 gas with approximately 4 liters. A second port was placed left laterally, this was done under direct visualization with a 5 mm port. Survey of the patient's abdomen demonstrated normal liver and gallbladder. Survey of the patient's pelvic anatomy demonstrated normal appearing rt and lt ovary and tubes as well as normal appearing uterus. No endometrial implants could be noted, no evidence of any pelvic disease was seen, normal appearing pelvic cavity. All instruments were removed from the patient's abdomen. The patient's abdomen was deinsufflated of CO2 gas. The patient tolerated the procedure well. Sponge stick was removed from the patient's vagina. The patient's infraumbilical fascia was closed using #0 Vicryl on a GI needle. The patient's skin was closed laterally and infraumbilically using 4-0 Vicryl. The patient tolerated the procedure well. Sponge, lap and needle counts were correct x 2. The patient was taken to Recovery Room in stable condition. Anesthesia: CA Surgeon: Johnie [place] [employer] Application Architect: Sandra Valadez Estimated blood loss (mL): 5 Pathology: none sent Condition: stable Disposition: PACU
[2024-12-19] MEDS: HYDROCODONE/ACET 5-325 MG TABLET 1 TAB PO (12:51)
--- NOTE | 2024-12-19 13:17 | PC.NURSE ---
Medicated with narcotic oral pain medication as ordered
--- NOTE | 2024-12-19 13:45 | PC.NURSE ---
Peripad dry; denies urge to void
--- NOTE | 2024-12-19 13:57 | PC.NURSE ---
Up to bathroom and voids clear yellow without difficulty
== END 2024-12-19 13:59 | disposition home or self-care (01) ==
LOC: SURGOUT 10:16
PROVIDERS: PCP Family Medicine; Visit Provider Obstetrics & Gynecology
PROC: (CPT 840; principal; 2024-12-19 11:40)
DX: R10.2 Pelvic and perineal pain (principal); Z90.710 Acquired absence of both cervix and uterus; K66.0 Peritoneal adhesions (postprocedural) (postinfection)
CPT/HCPCS: 49320; 36415; 85025; J1100; J1885; J2250; J2405; J2704; J3010